=== PATIENT | female | born 1965 | race Two or more races ===

== ENCOUNTER 2020-09-12 09:22 | Outpatient (REF) | payer MEDICARE, MEDICAID, SELFPAY ==
--- NOTE | 2020-09-12 09:28 | US_ITS ---
EXAMINATION: US ABDOMEN COMPLETE CLINICAL INFORMATION: Upper abdominal pain, unspecified. COMPARISON: None TECHNIQUE: Real-time imaging of the abdominal viscera. FINDINGS: PANCREAS: Normal. ABDOMINAL AORTA: The proximal, mid, and distal segments are normal in caliber. INFERIOR VENA CAVA: Visualized portions are normal. LIVER: Normal. The liver is normal in size. The liver contour is normal. Parenchymal echogenicity is normal. No focal hepatic lesion. There is no intrahepatic biliary duct dilatation seen. GALLBLADDER: Surgically absent. COMMON BILE DUCT: Normal in caliber measuring 0.6 cm in diameter. RIGHT KIDNEY: Normal. No hydronephrosis. No renal calculi or focal parenchymal lesions. The kidney measures 10.4 cm in maximum dimension. LEFT KIDNEY: Normal. No hydronephrosis. No renal calculi or focal parenchymal lesions. The kidney measures 9.9 cm in maximum dimension. SPLEEN: Normal. The spleen measures 8.2 cm in maximum dimension. FREE FLUID: None. US/US abdomen complete IMPRESSION: Unremarkable complete abdomen ultrasound.
== END 2020-09-12 09:23 | disposition home or self-care (01) ==
LOC: HO.US 09:22
PROVIDERS: Visit Provider Internal Medicine
DX: R10.10 Upper abdominal pain, unspecified (principal)
CPT/HCPCS: 76700

== ENCOUNTER 2021-05-21 11:34 | Outpatient (REF) | payer MEDICARE, MEDICAID, SELFPAY ==
--- NOTE | ~2021-05-21 | XR_ITS ---
EXAMINATION: XR SHOULDER, LEFT CLINICAL INFORMATION: Pain upper arm. COMPARISON: None TECHNIQUE: Left shoulder is imaged in 4 views. FINDINGS: There is no fracture, dislocation, or destructive process. The glenohumeral joint appears normal. The acromioclavicular alignment is normal. The axial view shows punctate mineralization or ossification adjacent to the anterior aspect tuberosity, possibly calcific tendinosis distal subscapularis. Otherwise, no visible rotator cuff calcifications. XR/XR shoulder LT min 2V IMPRESSION: 1. No bony abnormality. No joint narrowing or erosive change. 2. Question calcification in region of distal subscapularis. No other visible rotator cuff calcifications.
== END 2021-05-21 11:35 | disposition home or self-care (01) ==
LOC: HO.HMGCX 11:34
PROVIDERS: PCP Internal Medicine; Visit Provider Internal Medicine
DX: Z13.89 Encounter for screening for other disorder (principal)
CPT/HCPCS: 73030

== ENCOUNTER 2023-08-18 15:31 | Outpatient (AMB) | payer MEDICARE, MEDICAID, SELFPAY ==
[2023-08-18 15:45] VITALS: BP 124/74; PULSE 62; RESP 17; O2SAT 97; BMI 23.2
--- NOTE | 2023-08-18 15:45 | A.OFFPC_ITS ---
Vital Signs 08/18/23 15:45 Height 5 ft 3 in Weight 131 lb 4 oz BMI 23.2 BP 124/74 Blood Pressure Location Lt brachial Position Sitting Respiration 17 Pulse 62 Pulse Source Pulse Oximeter Pulse Oximetry (%) 97 Oxygen Delivery Method Room Air Intake Visit Reasons: Rapid weight loss Intake Note: Transfer care from [place]. Pt is here for rapid weight loss. [employer] Instructor Required: No Accompanied by: Self / Same As Patient Allergies codeine Allergy (Unknown, Verified 08/18/23 16:02) palpitation Penicillins Allergy (Unknown, Verified 08/18/23 16:02) Rash Medication List - Last Reconciled 08/18/23 by Brady Bonilla PA-C acetaminophen 1,000 mg PO Q8H aspirin 325 mg PO DAILY cyclobenzaprine 10 mg PO TID PRN duloxetine 30 mg PO DAILY loratadine 10 mg PO DAILY lorazepam 0.5 mg PO BEDTIME PRN meclizine 12.5 mg PO .QD PRN meloxicam 15 mg PO DAILY 30 days Tobacco use date assessed: 11/16/22 Dental Screening Dental Screen Date: 08/18/23 Did you have a dental visit in the last 12 months?: Yes Did you have a dental problem in the last 6 months where you did not have access to dental care?: No Was dental information given to patient?: Patient has dentist HPI Rapid weight loss HPI Details Patient is a 57-year-old female here today for transfer of care visit. This is the 1st time meeting this 57-year-old female with a past medical history significant for generalized anxiety disorder, vertigo, chronic arthritic pains. She is mostly concerned today of some weight loss. She reports she gained about 15 lb before her last office visit though has lost another 15 lb over the last 6 weeks. According to our records she has only 4 lb since October of 2022. She reports her previous PCP many years ago did note she had a pulmonary nodule and wonders if she has a thyroid issue causing her weight fluctuations. Anxiety: She continues to suffer with anxiety worse as of lately. She did use lorazepam on a very limited p.r.n. basis for panic attacks to which she is asking for refill on. [facility] Medical History (Updated 08/18/23 @ 16:21 by Brady Bonilla PA-C) Vertigo Costochondritis Generalized anxiety disorder History of COVID-19 Seasonal allergies Chronic heartburn Rotator cuff tear Degenerative disc disease, cervical Anxiety disorder Cholecystitis Upper abdominal pain Surgical History History of rotator cuff surgery Hx of cholecystectomy Family History Father HTN (hypertension) Diabetes mellitus Mother HTN (hypertension) Son Crohn disease Daughter No problems noted. Social History Household Members: Spouse Housing: House Alcohol intake: current Alcohol intake frequency: holidays/special occasions only Alcohol type: wine Patient Tobacco Use Status: Never used Tobacco e-Cigarette/Vaping Use: Never Used service: No Current occupational status: unemployed and retired Cognitive needs: No Hearing needs: No Vision needs: No Questionnaire Thrive Questionnaire Date Thrive assessed: 11/16/22 YASHIRA-7 AMB Questionnaire YASHIRA-7 Date YASHIRA - 7 assessed: 11/16/22 Source: Developed by Drs. Kaushik Hammond, Kari Saldivar, Costa James and colleagues, with an educational antonio from [employer]. Review of Systems Const Denies headache(s) Eyes Denies loss of vision ENT Reports vertigo, Reports dizziness, Denies headache(s) and Denies sore throat Card Denies chest pain, Denies leg edema and Denies lightheadedness Resp Denies cough, Denies hemoptysis and Denies wheezing GI Denies abdominal pain, Denies melena, Denies constipation, Denies diarrhea and Denies vomiting Denies urinary frequency, Denies dysuria and Denies urinary urgency Musc Denies atrophy, Denies arthralgias, Denies joint swelling, Denies numbness and Denies tingling Neuro Denies Abnormal speech present, Denies behavioral changes, Reports vertigo, Reports dizziness, Denies headache(s), Denies loss of vision, Denies memory loss, Denies numbness and Denies tingling Psych Reports anxiety, Denies behavioral changes, Denies depression, Denies memory loss and Reports panic attacks Martin/Lymph Denies easy bleeding and Denies easy bruising Aller/Immun Denies wheezing Physical exam (Primary Care) Vital Signs: Last Vital Signs Pulse 62 08/18/23 15:45 Resp 17 12/20/23 15:45 BP 124/74 08/18/23 15:45 Pulse Ox 97 08/18/23 15:45 Oxygen Delivery Method Room Air 08/18/23 15:45 BMI result Body Mass Index 23.2 Tobacco/Smoking Status: Tobacco use Status Tobacco use date assessed 11/16/22 08/18/23 15:47 Patient Tobacco Use Status Never used Tobacco 08/18/23 15:47 e-Cigarette/Vaping Use Never Used 08/18/23 15:47 Thrive Assessment: Date of Thrive Assessment Date Thrive assessed 11/16/22 08/18/23 15:47 Const General: healthy appearing, no acute distress, alert and awake Nutritional Appearance: well nourished Orientation/consciousness: oriented to person, oriented to place and oriented to time HENMT Ears: TM's normal bilaterally General nose exam: Normal nasal mucous membranes and turbinates present Eyes Conjunctivae: conjunctivae normal Sclerae: sclerae normal Pupils: Equal, round and reactive pupils present Neck Neck: Yes no lymphadenopathy and Yes no JVD Thyroid: Thyroid normal Carotids: no bruits Resp Effort & Inspection: normal respiratory effort and not tachypneic Auscultation: no crackles, no rales, no rhonchi and no wheezes Cardio Rate: regular rate Rhythm: regular rhythm Heart sounds: no murmurs and normal S1 and S2 GI Palpation (GI): Soft to palpation, nontender, no hepatomegaly and no splenomegaly Auscultation: normal bowel sounds Skin General skin exam: no rashes or lesions noted and dry skin Neuro General: oriented to person, oriented to place and oriented to time Cranial nerves: Yes Equal, round and reactive pupils present Speech: No Abnormal speech present Gait exam (Neuro): Normal gait present Motor exam (neuro): no tremor noted Extrem Right upper extremity: full ROM Left upper extremity: full ROM Right lower extremity: full ROM; no edema Left lower extremity: full ROM; no edema Psych Mental Status: mental status grossly normal Speech and movement: Normal speech and movement present Affect: normal affect Attitude: cooperative Thought process: Normal thought process present Assessment and Plan Assessment & Plan (1) Fatigue: Code(s): R53.83 - Other fatigue Qualifiers: Fatigue type: chronic, unspecified Qualified Code(s): R53.82 - Chronic fatigue, unspecified Plan: Reports being more fatigued as of late. Will like to check her thyroid. (2) Weight loss: Code(s): R63.4 - Abnormal weight loss Plan: Does report weight loss over the last 6 weeks. Again will like to check her thyroid (3) Thyroid nodule: Code(s): E04.1 - Nontoxic single thyroid nodule Plan: Has a history of a thyroid nodule per patient. Had never followed up for surveillance imaging.. Will send for ultrasound of thyroid to evaluate thyroid nodule (4) Screening for diabetes mellitus (DM): Code(s): Z13.1 - Encounter for screening for diabetes mellitus (5) Generalized anxiety disorder: Code(s): F41.1 - Generalized anxiety disorder Plan: Patient does report suffering with more anxiety as of lately and does not completely understand why. 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 She would like a few tablets of lorazepam to use on a p.r.n. basis for panic. Not interested in speaking with a mental health therapist at this time. Orders: Orders US thyroid 08/18/23 E04.1 - Nontoxic single thyroid nodule TSH reflex Free T4 08/18/23 E04.1 - Nontoxic single thyroid nodule Comprehensive [place]. Panel Fast 08/18/23 Z13.1 - Encounter for screening for diabetes mellitus Medications: Changed From loratadine 10 mg PO DAILY 30 tabs 2RF J30.2 - Other seasonal allergic rhinitis To loratadine 10 mg PO DAILY 90 days 90 tabs 1RF J30.2 - Other seasonal usha rgic rhinitis Refilled meclizine 12.5 mg PO .QD PRN 20 tabs 0RF dizziness E04.1 - Nontoxic single thyroid nodule lorazepam 0.5 mg PO BEDTIME PRN 5 tabs 0RF anxiety Z76.0 - Encounter for issue of repeat prescription Discontinued cyclobenzaprine Discontinued Reason: Doctor's Order 10 mg PO TID PRN 20 tabs 0RF muscle spasm duloxetine Discontinued Reason: Doctor's Order 30 mg PO DAILY 90 caps 1RF F41.1 - Generalized anxiety disorder Coding Level of Care Code Est Pt Level 4 (95768) Diagnoses Chronic fatigue R53.82 Fatigue type: chronic, unspecified Weight loss R63.4 Thyroid nodule E04.1 Screening for diabetes mellitus (DM) Z13.1 Generalized anxiety disorder F41.1
== END 2023-08-18 16:34 | disposition home or self-care (01) ==
PROVIDERS: PCP Physician Assistant; Visit Provider Physician Assistant
DX: R53.82 Chronic fatigue, unspecified (principal); R63.4 Abnormal weight loss; E04.1 Nontoxic single thyroid nodule; Z13.1 Encounter for screening for diabetes mellitus; F41.1 Generalized anxiety disorder
CPT/HCPCS: 99214

== ENCOUNTER 2023-08-18 16:40 | Outpatient (REF) | payer MEDICARE, MEDICAID, SELFPAY ==
[2023-08-18 18:12] LABS: Alanine Aminotransferase 20 U/L (0-31); Albumin Level 4.7 g/dL (3.5-5.0); Alkaline Phosphatase 97 U/L (39-117); Anion Gap 13 (12-20); Aspartate Amino Transferase 18 U/L (5-31); Bilirubin Total 0.6 mg/dL (0.0-1.0); Blood Urea Nitrogen 15 mg/dL (9-16); Calcium 9.8 mg/dL (8.4-10.2); Carbon Dioxide 27 mmol/L (22-29); Chloride 107 mmol/L (96-108); Estimated Glomerular Filt Rate > 60; Glucose Fasting 91 mg/dL (60-99); Potassium 3.7 mmol/L (3.3-5.1); Sodium 143 mmol/L (135-145); Total Protein 8.2 g/dL (6.5-8.0)
[2023-08-18 18:27] LABS: TSH reflex Free T4 1.95 uIU/mL (0.32-4.0)
== END 2023-08-18 16:41 | disposition home or self-care (01) ==
LOC: HO.LAB 16:40
PROVIDERS: PCP Physician Assistant; Visit Provider Physician Assistant
DX: E04.1 Nontoxic single thyroid nodule (principal); Z13.1 Encounter for screening for diabetes mellitus
CPT/HCPCS: 36415; 80053; 84443

== ENCOUNTER 2024-02-01 10:20 | Outpatient (AMB) | payer OTHER, SELFPAY ==
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
[2024-02-01 10:33] VITALS: BP 146/80; PULSE 60; O2SAT 98; BMI 24.1
== END 2024-02-01 11:50 | disposition home or self-care (01) ==
PROVIDERS: PCP Physician Assistant; Visit Provider Physician Assistant
DX: M25.561 Pain in right knee (principal); M25.562 Pain in left knee; V89.2XXS Person injured in unspecified motor-vehicle accident, traffic, sequela; R63.4 Abnormal weight loss; F41.1 Generalized anxiety disorder; N63.31 Unspecified lump in axillary tail of the right breast; N63.32 Unspecified lump in axillary tail of the left breast
CPT/HCPCS: 96127; 99214

== ENCOUNTER 2024-02-03 09:21 | Outpatient (REF) | payer MEDICARE, MEDICAID, SELFPAY ==
[2024-02-03 10:18] LABS: Hematocrit 37.4 % (37.0-47.0); Hemoglobin 12.7 g/dl (12.0-16.0); Mean Corpuscular Hemoglobin 31.1 pg (27.0-33.0); Mean Corpuscular Volume 91.4 fL (80.0-98.0); Mean Platelet Volume 10.2 fL (9.4-12.3); Platelet Count 199 X10*3/uL (160-400); Red Blood Count 4.09 X10*6/uL (4.20-5.50); Red Cell Distribution Width 12.2 % (11.0-16.0); White Blood Count 4.5 X10*3/uL (4.8-10.8)
[2024-02-03 10:54] LABS: Alanine Aminotransferase 18 U/L (0-31); Albumin Level 4.2 g/dL (3.5-5.0); Alkaline Phosphatase 77 U/L (39-117); Anion Gap 9 (12-20); Aspartate Amino Transferase 16 U/L (5-31); Bilirubin Total 0.8 mg/dL (0.0-1.0); Blood Urea Nitrogen 27 mg/dL (9-16); Calcium 9.8 mg/dL (8.4-10.2); Carbon Dioxide 28 mmol/L (22-29); Chloride 110 mmol/L (96-108); Estimated Glomerular Filt Rate > 60; Glucose Fasting 91 mg/dL (60-99); Potassium 4.4 mmol/L (3.3-5.1); Sodium 143 mmol/L (135-145)
[2024-02-03 11:03] LABS: HIV AB/AG Nonreactive (Nonreactive); HIV Num 1 0.06 S/CO (0.00-0.99)
[2024-02-03 11:19] LABS: TSH reflex Free T4 1.63 uIU/mL (0.32-4.0)
== END 2024-02-03 09:22 | disposition home or self-care (01) ==
LOC: HO.LAB 09:21
PROVIDERS: PCP Physician Assistant; Visit Provider Physician Assistant
DX: E04.1 Nontoxic single thyroid nodule (principal); Z13.1 Encounter for screening for diabetes mellitus; Z11.3 Encounter for screening for infections with a predominantly sexual mode of transmission; R63.4 Abnormal weight loss
CPT/HCPCS: 36415; 80053; 84443; 85027; 87389

== ENCOUNTER 2024-02-16 13:37 | Outpatient (REF) | payer MEDICARE, MEDICAID, SELFPAY ==
--- NOTE | ~2024-02-16 | US_ITS ---
EXAMINATION: ULTRASOUND BILATERAL AXILLA SOFT TISSUES CLINICAL INFORMATION: Bilateral axillary pain, no palpable lump. Per patient the pain has been going for a while. No known history of trauma to the axilla. COMPARISON: None available. TECHNIQUE: Targeted ultrasound images were obtained by the block greaser of the area of concern as indicated by the patient in the bilateral axilla. Radiologist was not in attendance. Images were later provided for interpretation. FINDINGS: No discrete adenopathy or fluid collection identified in the areas of concern as indicated by the patient in the bilateral axillae. US/US extremity nonvascular jose IMPRESSION: 1. No discrete adenopathy or fluid collection identified in the areas of concern as indicated by the patient in the bilateral axillae. 2. Decisions regarding further imaging, treatment or biopsy should be based on the clinical exam, as not all abnormalities are detectable on ultrasound studies.
== END 2024-02-16 13:38 | disposition home or self-care (01) ==
LOC: HO.HMGCX 13:37
PROVIDERS: PCP Physician Assistant; Visit Provider Physician Assistant
DX: N63.32 Unspecified lump in axillary tail of the left breast (principal); M79.621 Pain in right upper arm; M79.622 Pain in left upper arm
CPT/HCPCS: 76882

== ENCOUNTER 2024-08-28 10:03 | Outpatient (AMB) | payer MEDICARE, MEDICAID, SELFPAY ==
--- NOTE | 2024-08-28 10:36 | A.OFFPC_ITS ---
Vital Signs 08/28/24 10:45 Height 5 ft 1.02 in Weight 129 lb 4 oz BMI 24.4 BP 128/72 Blood Pressure Location Lt brachial Position Sitting Pulse 61 Pulse Source Pulse Oximeter Pulse Oximetry (%) 100 Oxygen Delivery Method Room Air Intake Visit Reasons: Abdominal pain/GI referral Contact Center Specialist Required: No Accompanied by: Self / Same As Patient Allergies codeine Allergy (Unknown, Verified 08/28/24 10:49) palpitation Penicillins Allergy (Unknown, Verified 08/28/24 10:49) Rash Medication List - Last Reconciled 08/28/24 by Brady Bonilla PA-C acetaminophen 1,000 mg PO Q8H loratadine 10 mg PO DAILY 90 days lorazepam 0.5 mg PO BEDTIME PRN meclizine 12.5 mg PO .QD PRN meloxicam 15 mg PO DAILY 30 days Tobacco use date assessed: 02/01/24 Dental Screening Dental Screen Date: 02/01/24 HPI Abdominal pain/GI referral HPI Details The patient is a 58-year-old female presenting with abdominal pain and constipation. The abdominal pain has been ongoing for some time and was severe enough to prompt an emergency room visit. Initial suspicion included appendiceal involvement due to the pain's location, but subsequent evaluations, including blood work and ultrasound, did not confirm this. The pain persists in the area believed to be around the colon, with the patient describing it as a sharp, pinching sensation. Approximately 10 years ago, the patient underwent a colonoscopy during which polyps were removed. Recent interventions include increased water intake and use of various stool softeners and laxatives, such as MiraLAX, Co-Lax, and fiber supplements, without significant relief. She does not describe frequent or unusual bowel movements but reports a feeling of not going often enough and notes that the pain is localized to the right side. The patient denies any accompanying nausea, diarrhea, or rectal bleeding, and reports normal stool color. She previously experienced noticeable weight loss, decreasing from 140 to 127 pounds, although her weight has since stabilized. Reports she has been dealing lot of depression lately evidenced feeling fatigued, already sleeping and often crying. She is willing to try an SSRI to help her with depression. She does use lorazepam on a very limited basis for her mental health as well. She was seeing a mental health therapist quite awhile ago though has stopped getting services as they were not helpful. [facility] Medical History Vertigo Costochondritis Generalized anxiety disorder History of COVID-19 Seasonal allergies Chronic heartburn Rotator cuff tear Degenerative disc disease, cervical Anxiety disorder Cholecystitis Upper abdominal pain Surgical History History of rotator cuff surgery Hx of cholecystectomy Family History Father HTN (hypertension) Diabetes mellitus Mother HTN (hypertension) Son Crohn disease Daughter No problems noted. Social History Household Members: Spouse Housing: House Alcohol intake: current Alcohol intake frequency: holidays/special occasions only Alcohol type: wine Patient Tobacco Use Status: Never used Tobacco e-Cigarette/Vaping Use: Never Used service: No Current occupational status: unemployed and retired Cognitive needs: No Hearing needs: No Vision needs: No Questionnaire PHQ-9 Over the last 2 weeks, how often have you been bothered by any of the following problems? 1. Little interest or pleasure in doing things: several days 2. Feeling down, depressed, or hopeless: more than half the days 3. Trouble falling or staying asleep, or sleeping too much: several days 4. Feeling tired or having little energy: more than half the days 5. Poor appetite or overeating: not at all 6. Feeling bad about yourself - or that you are a failure or have let yourself or your family down: several days 7. Trouble concentrating on things, such as reading the newspaper or watching television: several days 8. Moving or speaking so slowly that other people could have noticed. Or the opposite - being so fidgety or restless that you have been moving around a lot more than usual: not at all 9. Thoughts that you would be better off or of hurting yourself in some way: not at all Total score: 8 Depression Screening Interpretation: Positive Depression Screening Follow-up: Existing condition and New Medication prescribed Depression Screening Done: Yes 20854 - PHQ-9 Billing: Yes Source: Developed by Drs. Kaushik Hammond, Kari Costa Paul and colleagues, with an educational antonio from [employer]. Thrive Questionnaire Date Thrive assessed: 02/01/24 YASHIRA-7 AMB Questionnaire YASHIRA-7 Date YASHIRA - 7 assessed: 02/01/24 Source: Developed by Drs. Kaushik Hammond, Costa Williamson and colleagues, with an educational antonio from [employer]. Review of Systems Const Denies headache(s) Eyes Denies loss of vision ENT Denies vertigo, Denies dizziness, Denies headache(s) and Denies sore throat Card Denies chest pain, Denies leg edema and Denies lightheadedness Resp Denies cough, Denies hemoptysis and Denies wheezing GI Details: + right lower quadrant abdominal pain Reports abdominal pain, Denies melena, Reports constipation, Denies diarrhea and Denies vomiting Denies urinary frequency, Denies dysuria and Denies urinary urgency Musc Denies arthralgias, Denies joint swelling, Denies numbness and Denies tingling Neuro Denies Abnormal speech present, Denies behavioral changes, Denies vertigo, Denies dizziness, Denies headache(s), Denies loss of vision, Denies memory loss, Denies numbness and Denies tingling Psych Reports anxiety, Denies behavioral changes, Reports depression, Denies memory loss and Denies panic attacks Martin/Lymph Denies easy bleeding and Denies easy bruising Aller/Immun Denies wheezing Physical exam (Primary Care) Vital Signs: Last Vital Signs Pulse 61 08/28/24 10:45 BP 128/72 08/28/24 10:45 Pulse Ox 100 08/28/24 10:45 Oxygen Delivery Method Room Air 08/28/24 10:45 BMI result Body Mass Index 24.4 Tobacco/Smoking Status: Tobacco use Status Tobacco use date assessed 02/01/24 08/28/24 10:36 Patient Tobacco Use Status Never used Tobacco 08/28/24 10:36 e-Cigarette/Vaping Use Never Used 08/28/24 10:36 PHQ-9: PHQ-9 Score PHQ-9: Total score 8 08/28/24 11:18 Depression Screening Interpretation: Positive Depression Screening Follow-up: Existing condition and New Medication prescribed Thrive Assessment: Date of Thrive Assessment Date Thrive assessed 02/01/24 08/28/24 10:36 Const General: healthy appearing, no acute distress, alert and awake Nutritional Appearance: well nourished Orientation/consciousness: oriented to person, oriented to place and oriented to time HENMT Ears: TM's normal bilaterally General nose exam: Normal nasal mucous membranes and turbinates present Eyes Conjunctivae: conjunctivae normal Sclerae: sclerae normal Pupils: Equal, round and reactive pupils present Neck Neck: Yes no lymphadenopathy and Yes no JVD Thyroid: Thyroid normal Carotids: no bruits Resp Effort & Inspection: normal respiratory effort and not tachypneic Auscultation: no crackles, no rales, no rhonchi and no wheezes Cardio Rate: regular rate Rhythm: regular rhythm Heart sounds: no murmurs and normal S1 and S2 GI Palpation (GI): Soft to palpation, nontender, no hepatomegaly and no splenomegaly Auscultation: normal bowel sounds Skin General skin exam: no rashes or lesions noted and dry skin Neuro General: oriented to person, oriented to place and oriented to time Cranial nerves: Yes Equal, round and reactive pupils present Speech: No Abnormal speech present Gait exam (Neuro): Normal gait present Motor exam (neuro): no tremor noted Extrem Right upper extremity: full ROM Left upper extremity: full ROM Right lower extremity: full ROM; no edema Left lower extremity: full ROM; no edema Psych Mental Status: mental status grossly normal Speech and movement: Normal speech and movement present Affect: normal affect Attitude: cooperative Thought process: Normal thought process present Coding Level of Care Code Est Pt Level 4 (62243) Diagnoses Slow transit constipation K59.01 Constipation type: slow transit constipation MDD (major depressive disorder), recurrent episode, moderate F33.1 Additional Codes PHQ-9 - 57923 - PHQ-9 Billing: Yes ([id number]) Assessment & Plan Assessment & Plan (1) Constipation: Code(s): K59.00 - Constipation, unspecified Category: Medical Qualifiers: Constipation type: slow transit constipation Qualified Code(s): K59.01 - Slow transit constipation Plan: Patient seems to be suffering with constipation. CT of abdomen did show a lot of stool blurred though senior financial reporting accountant evidence of appendicitis. She continues to have right lower quadrant abdominal pain Will supply patient with lactulose to use for it is a laxative effect. Will refer to GI for evaluation (2) MDD (major depressive disorder), recurrent episode, moderate: Code(s): F33.1 - Major depressive disorder, recurrent, moderate Category: Medical Plan: As per HPI patient does seem to be suffering with major depressive disorder. Again was seen by mental health therapist in the past though was not effective for her. She is willing to try SSRI therapy to help her with the depressed mood. Follow up with patient in 6 weeks to evaluate the effectiveness of SSRI therapy. Will consider Psychiatry re-evaluation and treatment Orders: Orders Basic Metabolic Panel Today K59.01 - Slow transit constipation Complete Blood Count no Diff Today F33.1 - Major depressive disorder, recurrent, moderate Vitamin D 25-OH Total Today F33.1 - Major depressive disorder, recurrent, moderate Referrals Gastroenterology Referral K59.01 - Slow transit constipation Medications: New lactulose 30 grams (45 mL) PO BID PRN 600 mL 0RF constipation 15 days K59.01 - Slow transit constipation sertraline 50 mg PO DAILY 30 tabs 1RF 30 days F33.1 - Major depressive disorder, recurrent, moderate Refilled lorazepam 0.5 mg PO BEDTIME PRN 5 tabs 0RF anxiety Z76.0 - Encounter for issue of repeat prescription
[2024-08-28 10:45] VITALS: BP 128/72; PULSE 61; O2SAT 100; BMI 24.4
== END 2024-08-28 11:18 | disposition home or self-care (01) ==
PROVIDERS: PCP Physician Assistant; Visit Provider Physician Assistant
DX: K59.01 Slow transit constipation (principal); F33.1 Major depressive disorder, recurrent, moderate

== ENCOUNTER 2024-09-12 09:16 | Outpatient (REF) | payer MEDICARE, MEDICAID, SELFPAY ==
[2024-09-12 09:52] LABS: Hematocrit 39.5 % (37.0-47.0); Hemoglobin 13.2 g/dl (12.0-16.0); Mean Corpuscular HGB Conc 33.4 g/dl (31.0-35.0); Mean Corpuscular Hemoglobin 30.5 pg (27.0-33.0); Mean Corpuscular Volume 91.2 fL (80.0-98.0); Mean Platelet Volume 10.4 fL (9.4-12.3); Platelet Count 179 X10*3/uL (160-400); Red Blood Count 4.33 X10*6/uL (4.20-5.50); Red Cell Distribution Width 12.1 % (11.0-16.0); White Blood Count 4.1 X10*3/uL (4.8-10.8)
[2024-09-12 10:44] LABS: Anion Gap 8 (12-20); Blood Urea Nitrogen 14 mg/dL (9-16); Calcium 9.5 mg/dL (8.4-10.2); Carbon Dioxide 28 mmol/L (22-29); Chloride 109 mmol/L (96-108); Estimated Glomerular Filt Rate > 60; Glucose Random 87 mg/dL (60-115); Potassium 4.2 mmol/L (3.3-5.1); Sodium 141 mmol/L (135-145); Vitamin D 25-OH Total 30.4 ng/mL (>30)
== END 2024-09-12 09:17 | disposition home or self-care (01) ==
LOC: HO.LAB 09:16
PROVIDERS: PCP Physician Assistant; Visit Provider Physician Assistant
DX: K59.01 Slow transit constipation (principal); F33.1 Major depressive disorder, recurrent, moderate
CPT/HCPCS: 36415; 80048; 82306; 85027

== ENCOUNTER 2024-10-10 09:30 | Outpatient (AMB) | payer MEDICARE, MEDICAID, SELFPAY ==
--- NOTE | 2024-10-10 09:35 | MHC.OFFVIS ---
Vital Signs 10/10/24 09:37 Height 5 ft 1 in Weight 133 lb 2.547 oz BMI 25.2 BP 136/66 Blood Pressure Location Rt brachial Position Sitting Pulse 64 Pulse Source Pulse Oximeter Pulse Oximetry (%) 97 Oxygen Delivery Method Room Air Intake Visit Reasons: abdominal pain Intake Note: NEW PATIENT for abd pain mgmt. Initial consult. Prior hx of colo/egd? > 10 Years ago per PCP note. Chief Complaint; Pt reported abn weight loss over the last year. Hx of IBS-C, denies diarrhea, abd pain B/L UQ primarily, reports occasional RLQ pain but not as frequently. Reflux is occasional but tends to be well managed with diet. Decontamination Worker Required: No Accompanied by: Self / Same As Patient Allergies codeine Allergy (Unknown, Verified 08/28/24 10:49) palpitation Penicillins Allergy (Unknown, Verified 08/28/24 10:49) Rash HPI HPI abdominal pain: Details: 58-year-old female with past medical history of MDD, constipation, thyroid nodule, costochondritis, generalized anxiety disorder, seasonal allergies is here today for initial consultation. Patient was sent to us by her PCP. Patient reports that she has been having abdominal bloating and epigastric pain. Patient also suffers from constipation. Even when she has a bowel movement she does not feel like she empties completely. Patient reports left lower quadrant pain. Denies increase in pain when pressing. Denies any nausea or vomiting. Denies any melena, hematochezia, unintentional weight loss or ribbon like stools. Patient does report that she lost weight in the last year so, however when we are checking her history she has been the same wait for about almost 2 years. Patient was seen at [facility] in [place] in the ED for abdominal pain. Patient thought that she had diverticulitis, however patient had normal CT scan and no leukocytosis. [facility] Medical History (Updated 10/10/24 @ 10:12 by RUDY Callaway-ERAN) Abdominal pain Vertigo Costochondritis Generalized anxiety disorder History of COVID-19 Seasonal allergies Chronic heartburn Rotator cuff tear Degenerative disc disease, cervical Anxiety disorder Cholecystitis Upper abdominal pain Surgical History History of rotator cuff surgery Hx of cholecystectomy Family History Father HTN (hypertension) Diabetes mellitus Mother HTN (hypertension) Son Crohn disease Daughter No problems noted. Social History Household Members: Spouse Housing: House Alcohol intake: current Alcohol intake frequency: holidays/special occasions only Alcohol type: wine Patient Tobacco Use Status: Never used Tobacco e-Cigarette/Vaping Use: Never Used service: No Current occupational status: unemployed and retired Cognitive needs: No Hearing needs: No Vision needs: No Review of Systems Const Denies weight gain and Denies weight loss ENT Reports no additional complaints, Denies dysphagia and Denies odynophagia Card Reports no additional complaints Resp Reports no additional complaints GI Reports abdominal pain (LUQ, occ RLQ), Denies belching, Denies melena, Reports bloating, Denies change in bowel habits, Reports constipation, Denies dysphagia, Denies excessive flatus, Denies dyspepsia, Denies heartburn, Denies diarrhea, Denies loose stools, Denies nausea, Denies odynophagia and Denies vomiting Reports no additional complaints Musc Reports no additional complaints Neuro Reports no additional complaints Psych Reports no additional complaints Endo Reports no additional complaints Physical Exam Vital Signs: Last Vital Signs Pulse 64 10/10/24 09:37 BP 136/66 10/10/24 09:37 Pulse Ox 97 10/10/24 09:37 Oxygen Delivery Method Room Air 10/10/24 09:37 BMI result Body Mass Index 25.2 Const General: healthy appearing, no acute distress and well developed Nutritional Appearance: well nourished Orientation/consciousness: patient oriented x3 Resp Effort & Inspection: normal respiratory effort, able to speak in complete sentences, no tracheal deviation and symmetric chest movement Auscultation: clear to auscultation bilaterally Cardio Rate: regular rate GI Inspection: Yes normal to inspection and No distended Palpation (GI): Soft to palpation, not firm, nontender and No hepatosplenomegaly present Auscultation: normal bowel sounds General: Yes no CVA tenderness Back/Spine/Pelvis Back: no CVA tenderness Skin General skin exam: elasticity normal, turgor normal and dry skin Neuro General: patient oriented x3 Psych Appearance: grossly normal Mental Status: mental status grossly normal Assessment & Plan Assessment & Plan (1) Constipation: Code(s): K59.00 - Constipation, unspecified Category: Medical Qualifiers: Constipation type: slow transit constipation Qualified Code(s): K59.01 - Slow transit constipation (2) Abdominal bloating: Code(s): R14.0 - Abdominal distension (gaseous) (3) LLQ abdominal pain: Code(s): R10.32 - Left lower quadrant pain (4) RLQ abdominal pain: Code(s): R10.31 - Right lower quadrant pain (5) GERD (gastroesophageal reflux disease): Code(s): K21.9 - Gastro-esophageal reflux disease without esophagitis Qualifiers: Esophagitis presence: esophagitis presence not specified Qualified Code(s): K21.9 - Gastro-esophageal reflux disease without esophagitis Plan Occasional reflux, however patient reports that she is trying to change her diet and avoiding dietary triggers. Patient reports severe constipation. Patient will increase fluid intake. States that she does not drink water. Increase activity to promote better bowel motility. Patient will start taking senna daily. Occasional out upper quadrant pain and left upper quadrant pain, however mostly experiencing pain in the left lower and right lower quadrant. Will check liver panel, lipase. Rule out celiac, check thyroid study. Message sent to surgical schedulers to book colonoscopy for patient. I will see her in 2 months. Patient will call our office if she will have worsening symptoms. Patient is agreeable to this plan and verbalizes understanding of instructions. She was given the opportunity to ask questions and all questions answered. Thank you for allowing me to participate in her care Report from ED visit at [facility] as well as labs and CT scans reviewed Orders: Orders Liver Panel Today R74.01 - Elevation of levels of liver transaminase levels Lipase Today R10.9 - Unspecified abdominal pain Transglutaminase IgA Today R10.9 - Unspecified abdominal pain TSH reflex Free T4 Today K59.00 - Constipation, unspecified Vitamin B12 and Folate Today R19.7 - Diarrhea, unspecified Lipid Panel Today R10.9 - Unspecified abdominal pain Medications: New sennosides (Natural Senna Laxative) 17.2 mg (2 x 8.6 mg) PO BEDTIME 60 tabs 3RF constipation K59.00 - Constipation, unspecified Discontinued lactulose Discontinued Reason: Doctor's Order 30 grams (45 mL) PO BID 15 days PRN 600 mL 0RF constipation K59.01 - Slow transit constipation Coding Level of Care Code New Pt Level 4 (58591) Diagnoses Slow transit constipation K59.01 Constipation type: slow transit constipation Abdominal bloating R14.0 LLQ abdominal pain R10.32 RLQ abdominal pain R10.31 Gastroesophageal reflux disease, unspecified whether esophagitis present K21.9 Esophagitis presence: esophagitis presence not specified Time Spent (min) 50 Comment 30 minutes spent with patient and additional 20 minutes spent reviewing her records
[2024-10-10 09:37] VITALS: BP 136/66; PULSE 64; O2SAT 97; BMI 25.2
== END 2024-10-10 10:20 | disposition home or self-care (01) ==
PROVIDERS: PCP Physician Assistant; Visit Provider Nurse Practitioner Family
DX: K59.01 Slow transit constipation (principal); R14.0 Abdominal distension (gaseous); R10.32 Left lower quadrant pain; R10.31 Right lower quadrant pain; K21.9 Gastro-esophageal reflux disease without esophagitis
CPT/HCPCS: 99204

== ENCOUNTER → 2024-10-10 09:30 | Outpatient (BNVA) | payer MEDICARE, MEDICAID, SELFPAY | PROVIDERS: PCP Physician Assistant; Visit Provider Nurse Practitioner Family | DX: K59.01 Slow transit constipation (principal); K21.9 Gastro-esophageal reflux disease without esophagitis; R14.0 Abdominal distension (gaseous); R10.32 Left lower quadrant pain; R10.31 Right lower quadrant pain | CPT/HCPCS: 99202 ==

== ENCOUNTER 2024-10-16 08:57 | Outpatient (REF) | payer MEDICARE, MEDICAID, SELFPAY ==
--- OUTSIDE RECORDS SUMMARY | 2024-10-16 09:00 | XMS_ITS | Patient Health Record ---
Author Organization [facility] Address [address] [place] [address] Care Team Providers Care Skid Wrapper Name Role Phone Raymundo Fernando Primary Care Provider REASON FOR REFERRAL No Information PLAN OF TREATMENT No Information Insurance Providers Payer Name Payer Address Payer Phone Subscriber Number Group Number Insured Name Patient Relationship to Insured Coverage Start Date Coverage End Date MEDICARE [employer] [address] [place] [address] [id number] Charis Torres Self - patient is the insured [facility] [address] [place] [address] [id number] Charis Torres Self - patient is the insured
--- OUTSIDE RECORDS SUMMARY | 2024-10-16 09:00 | XMS_ITS | Clinical Summary ---
Author Organization [facility] Address [address] [place] [address] Care Team Providers Care Pre K Teacher Name Role Phone BeckGinnaEleni Plaza NP Primary Care Provi zelda Allergies Active Allergy Reactions Criticality Noted Date Comments Codeine Anaphylaxis High 08/04/2016 Penicillins Anaphylaxis High 08/04/2016 Medications lorazepam (ATIVAN) 1 MG tablet TAKE 1 TABLET BY MOUTH TWICE A DAY NEEDED FOR ANXIETY 0 6 Active meclizine (ANTIVERT) 25 mg tablet TAKE 1 TABLET BY MOUTH 3 TIMES A DAY NEEDED FOR DIZZINESS 1 7 Active loratadine (CLARITIN) 10 mg tablet TAKE 1 TABLET BY MOUTH EVERY DAY 5 7 Active omeprazole (PriLOSEC) 40 MG capsule TAKE 1 CAPSULE BY MOUTH EVERY DAY 1 8 Active meclizine (ANTIVERT) 12.5 mg tablet TAKE 1 TABLET BY MOUTH EVERY DAY NEEDED FOR DIZZINESS 4 Active aloe vera gel Apply to affected areas 4x daily as needed. 170 g 4 Active Active Problems Problem Noted Date Diagnosed Date Anxiety 10/23/2014 12/01/2023 Asthma (HHS/HCC) 10/23/2014 12/01/2023 Hypertension 10/23/2014 12/01/2023 Social History Tobacco Use Types Packs/Day Years Used Date Smoking Tobacco: Former Smokeless Tobacco: Never Comments No Sex and Gender Information Value Date Recorded Sex Assigned at Not on file Legal Sex Female 3:10 PM EST Gender Identity Not on file Sexual Orientation Not on file Last Filed Vital Signs Vital Sign Reading Time Taken Comments Blood Pressure 118/66 12/01/2023 2:47 PM EDT Pulse 69 12/01/2023 2:47 PM EDT Temperature 36.4 ??C (97.6 ??F) 12/01/2023 2:47 PM ED T Respiratory Rate 18 12/01/2023 2:47 PM EDT Oxygen Saturation 98% 12/01/2023 2:47 PM EDT Inhaled Oxygen Concentration - - Weight 61.7 kg (136 lb) 03/25/2020 10:13 AM EDT Height 160 cm (5' 3 ) 03/25/2020 10:13 AM EDT Body Mass Index 24.09 03/25/2020 10:13 AM EDT Plan of Treatment Health Maintenance Due Date Last Done Comments Colorectal Cancer: COLONOSCO PY Screening every 10 yrs (or Modifier) 1965 Pneumococcal Vaccination Scr eening: Pts 0-19 & 19-64 yrs of age ([facility]) (1 of 2 - PCV) 12/08/1969 Depression: Screening Annual ly using PHQ-2/9 in Adults 18 yrs or above (or HM Modifier)([facility]) 12/08/1981 Hepatitis C Virus Infection in Adolescents and Adults: Screening (or Modifier) ([facility]) 12/08/1981 KEVON Screening: Once using ST OP-BANG Questionnaire for Adults with Conditions or high BMI([facility]) 12/08/1981 SDOH Screening Reminder: Melisa charlee for all adults ([facility]) 12/08/1981 Tobacco Smoking Cessation: i n Adults excluding Women: Behavioral and Pharmacotherapy Interventions ([facility]) 12/08/1981 DTaP/Tdap/Td Vaccines ([facility]) (1 - Tdap) 12/08/1982 Cervical Cancer Screenin 1-65 yrs of age (or Modifier) 12/08/1984 Cervical Cancer Screening: P ap every 3 yrs pts age 21-65 12/08/1984 Cervical Cancer: Pap Screeni ng with Modifier timing ([facility]) 12/08/1984 Cervical Cancer: hrHPV alone or with cotesting Pap for Pts 30-65yrs screening every 5yrs ([facility]) 12/08/1984 Colorectal Cancer Screening 45 -75 Yrs (or HM Modifier ) 12/08/2008 Colorectal Cancer: FLEXIBLE SIGMOIDOSCOPY Screening every 5 yrs 12/08/2008 Colorectal Cancer: Fecal Imm unochemical Test (FIT) Annually [facility] 12/08/2008 Colorectal Cancer: High-sens itivity gFOBT Screening Annually [facility] 12/08/2008 Colorectal Cancer: Stool Col oguard Screening every 3 yrs 12/08/2008 Colorectal Cancer:CT Colonography Screening every 5 yr s 12/08/2008 Lipid Screening: Every 5 yrs for Women aged 45+ (or HM Modifier) ([facility]) 12/08/2009 Breast Cancer: Screening Melisa ually age 50-74 yrs (or HM Modifier)([facility]) 12/08/2013 Lung Cancer: Screening Annua lly in adults aged 50 to 80 years (or HM Modifiers)([facility]) 12/08/2013 Zoster/Shingles Vaccine Seri es Screening: Adults aged 18+ yrs (or HM Modifiers)([facility]) (1 of 2) 12/08/2013 RSV Vaccines (1 - Risk 60-74 years 1-dose series) 11/28 Flu Vaccination: Yearly for ages 18mos through 64 years (or Modifier)([facility]) 03/30/2024 COVID-19 Vaccine Screening: Initial Series and Booster Status ([facility]) (2023- season) 2024 [employer] Not on file Insurance [facility] [employer] MEDICARE Care Teams Pre K Teacher Relationship Specialty Start Date End Date Eleni Castellanos NP [address] [place] [address] [phone] PCP - Laster Hand 08/04/16
--- OUTSIDE RECORDS SUMMARY | 2024-10-16 09:00 | XMS_ITS | Clinical Summary ---
Author Organization [facility] Address [phone] [address] [place] [address] Care Team Providers Care Windows Desktop Engineer Name Role Phone Salud Grace MD Primary Care Provider [phone] Allergies Active Allergy Reactions Criticality Noted Date Comments Codeine Rash Low 02/19/2023 Penicillins Hives 02/19/2023 Medications Medication Sig Dispensed Refills Start Date End Date Status ondansetron (ZOFRAN) 4 MG tablet Take 1 tablet (4 mg total) by mouth every 8 (eight) hours as needed for nausea. 12 tablet 03/08/2023 Active aspirin 325 MG EC tablet Take 1 tablet (325 mg total) by mouth daily. 30 tablet 03/08/2023 Active oxyCODONE 5 MG immediate release tabletIndications:Pos toperative pain Take 1 tablet (5 mg total) by mouth every 4 (four) hours as needed. 30 tablet 03/09/2023 Active Social History Tobacco Use Types Packs/Day Years Used Date Smoking Tobacco: Never Smokeless Tobacco: Never Tobacco Cessation:Counseling Given: Not Answered Alcohol Use Standard Drinks/Week Comments Never 0 (1 standard drink = 0.6 oz pur e alcohol) Education Answer Date Recorded Are you interested in more education? Not on lobito e 02/09/2023 Are you concerned about learning? Not on file 02/09/2023 No 02/09/2023 No 02/09/2023 Digital Access Answer Date Recorded No 02/09/2023 No 02/09/2023 Reliable internet access at home? Not on file 02/09/2023 Device with a working camera? Not on file Intimate Partner Violence Answer Date R ecorded Are you denied basic needs s uch as food, clothing, or medical care? No 02/19/2023 In the past 12 months have y ou been in a relationship with a person who hurts, threatens, or tries to control you? No 02/19/2023 Are you denied basic needs s uch as food, clothing, or medical care? No 02/19/2023 In the past 12 months have y ou been in a relationship with a person who hurts, threatens, or tries to control you? No 02/19/2023 Sex and Gender Information Value Date Recorded Sex Assigned at Female 01/08/2023 1:02 PM EDT Gender Identity Female 01/08/2023 1:02 PM EDT Sexual Orientation Straight 01/08/2023 1: 02 PM EDT Last Filed Vital Signs Vital Sign Reading Time Taken Comments Blood Pressure 134/65 03/08/2023 1:30 PM EDT Pulse 57 03/08/2023 1:30 PM EDT Temperature 36.4 ??C (97.5 ??F) 03/08/2023 12:00 PM E DT Respiratory Rate 28 03/08/2023 12:45 PM EDT Oxygen Saturation 99% 03/08/2023 1:30 PM EDT Inhaled Oxygen Concentration - - Weight 60.3 kg (133 lb) 03/08/2023 8:36 AM EDT Height 160 cm (5' 3 ) 03/08/2023 8:36 AM EDT Body Mass Index 23.56 03/08/2023 8:36 AM EDT Plan of Treatment Health Maintenance Due Date Last Done Comments LIPID PANEL 1965 DEPRESSION SCREENING 1975 HEPATITIS B SCREENING 12/08/1981 HEPATITIS C SCREENING 12/08/1981 HIV ONE-TIME SCREENING (18-6 5 YEARS) 12/08/1981 PAP SMEAR 12/08/1984 MAMMOGRAM 2003 COLOGUARD 12/08/2008 COLONOSCOPY 12/08/2008 COLORECTAL CANCER SCREENING 12/08/2008 FIT TEST 12/08/2008 FOBT 12/08/2008 SIGMOIDOSCOPY 12/08/2008 VIRTUAL COLONOSCOPY 12/08/2008 HEPATITIS B VACCINES (2 of 3 - 19+ 3-dose series) 05/28/2009 04/30/2009 PNEUMOCOCCAL VACCINES (50+ y ears) (1 of 1 - PCV) 12/08/2013 ZOSTER VACCINES (1 of 2) 12/08/2013 Adult Td,Tdap Booster 02/27/2019 02/27/2009 INFLUENZA VACCINE (#1) 2024 COVID-19 VACCINE (1 - 2023-2 5 season) 2024 RSV VACCINE (1 - 1-dose 75+ series) 12/08/2038 SMOKING STATUS SCREENING (On ce After 26 Yrs) Completed 02/19/2023 HEPATITIS A VACCINES Aged Out No long er eligible based on patient's age to complete this topic HIB VACCINES Aged Out No longer eligi ble based on patient's age to complete this topic MENINGOCOCCAL VACCINES (ACWY) Aged Out No longer eligible based on patient's age to complete this topic Medical Devices Implanted Type Area Letter Of Credit Document Examiner Device Identifier Shelf Expiration Date Model / Serial / Lot Tendon Anchors 8 - [id number] Implanted:Qty: 1 on 03/08/2023 by Helder Nicole MD at [facility] [address] Right: Shoulder RUTH 10/09/2025 2504-1 / / [id number] [place] Bone 3.4mm Arthroscopic Delivery System Advanced - [id number] Implanted:Qty: 1 on 03/08/2023 by Helder Nicole MD at [facility] [address] Right: Shoulder RUTH 10/26/2025 [id number] / / [id number] Implant Mesh Lg Regeneten Bioinductive With Delivery System - [id number] Implanted:Qty: 1 on 03/08/2023 by Helder Nicole MD at [facility] [address] Right: Shoulder RUTH 08/08/2025 [id number] / / [id number] Care Teams Windows Desktop Engineer Relationship Specialty Start Date End Date Salud Grace MD [address] [facility] [address] [place] [address] PCP - General Internal Medicine 01/27/23 Additional Source Comments The information contained in this document represents components of the legal health record. It is not the complete legal health record.[facility]
--- OUTSIDE RECORDS SUMMARY | 2024-10-16 09:00 | XMS_ITS | Encounter Summary ---
Author Organization [facility] Address [phone] [place] [address] Care Team Providers Care Welt Trimming Machine Operator Name Role Phone Salud Grace MD Primary Care Provider [phone] Encounter Details Date Type Department Care Team (Late st Contact Info) Description 03/08/2023 Procedure Pass [facility] [address] [place] [id number] Social History Tobacco Use Types Packs/Day Years Used Date Smoking Tobacco: Never Smokeless Tobacco: Never Alcohol Use Standard Drinks/Week Comments Never 0 [...] Orientation Straight 01/08/2023 1: 02 PM EDT documented as of this encounter Plan of Treatment Not on file documented as of this encounter Visit Diagnoses Not on filedocumented in this encounter Care Teams Welt Trimming Machine Operator Relationship Specialty Start Date End Date Salud Grace MD [facility] [place] [address] PCP - General Internal Medicine 01/27/23 documented as of this encounter Additional Source Comments The information contained in this document represents components of the legal health record. It is not the complete legal health record.[facility]
--- OUTSIDE RECORDS SUMMARY | 2024-10-16 09:00 | XMS_ITS | Clinical Summary ---
Author Organization [facility] Address [address] [place] [address] Care Team Providers Care Overcoil Stepper Name Role Phone Elizabeth Ray MD Primary Care Provider [phone] Social History Tobacco Use Types Packs/Day Years Used Date Smoking Tobacco: Never Assessed Comments Unknown Sex and Gender Information Value Date Recorded Sex Assigned at Not on file Legal Sex Female 8:26 AM EST Gender Identity Not on file Sexual Orientation Not on file Plan of Treatment Health Maintenance Due Date Last Done Comments Breast Cancer Screening 1965 DTaP,Tdap,and Td Vaccines (1 - Tdap) 12/08/1982 Cervical Cancer Screening: P ap Smear 12/08/1984 Pneumococcal Vaccine: 50+ Ye ars (1 of 1 - PCV) 12/08/2013 Zoster Vaccines (1 of 2) 12/08/2013 COVID-19 Vaccine (2023-2 5 season) 2024 Influenza Vaccine (#1) 2024 RSV Immunization Patients 60 + Years Old (1 - 1-dose 75+ series) 12/08/2038 HIB Vaccines Aged Out No longer eligi ble based on patient's age to complete this topic HPV Vaccines Aged Out No longer eligi ble based on patient's age to complete this topic Hepatitis A Vaccines Aged Out No long er eligible based on patient's age to complete this topic Hepatitis B Vaccines Aged Out No long er eligible based on patient's age to complete this topic IPV Vaccines Aged Out No longer eligi ble based on patient's age to complete this topic MMR Vaccines Aged Out No longer eligi ble based on patient's age to complete this topic Meningococcal ACWY Vaccine Aged Out N o longer eligible based on patient's age to complete this topic Meningococcal B Vacine Aged Out No lo nger eligible based on patient's age to complete this topic Pneumococcal Vaccine: Pediat rics (0 to 5 Years) and At-Risk Patients (6 to 64 Years) Aged Out No longer eligible b ased on patient's age to complete this topic RSV Immunization Patients Un zelda 20 months Aged Out No longer eligible b ased on patient's age to complete this topic Varicella Vaccines Aged Out No longer eligible based on patient's age to complete this topic Care Teams Overcoil Stepper Relationship Specialty Start Date End Date Elizabeth Ray MD [address] [place] [address] PCP - General Internal Medicine 08/18/19
--- OUTSIDE RECORDS SUMMARY | 2024-10-16 09:00 | XMS_ITS | Encounter Summary ---
Author Organization [facility] Address [phone] [facility] [place] [address] Care Team Providers Care Top Distribution Executive Name Role Phone Salud Grace MD Primary Care Provider [phone] Encounter Details Date Type Department Care Team (Late st Contact Info) Description 02/10/2023 Procedure Pass MRI, [facility] [place] [address] [place] [address] Social History Tobacco Use Types Packs/Day Years Used Date Smoking Tobacco: Never Assessed Education Answer Date Recorded Are you interested in more education? Not on lobito e 02/09/2023 Are you concerned about learning? Not on file 02/09/2023 No 02/09/2023 No 02/09/2023 Digital Access Answer Date Recorded No 02/09/2023 No 02/09/2023 Reliable internet access at home? Not on file 02/09/2023 Device with a working camera? Not on file Sex and Gender Information Value Date Recorded Sex Assigned at Female 01/08/2023 1:02 PM EDT Gender Identity Female 01/08/2023 1:02 PM EDT Sexual Orientation Straight 01/08/2023 1: 02 PM EDT documented as of this encounter Plan of Treatment Not on file documented as of this encounter Visit Diagnoses Not on filedocumented in this encounter Care Teams Top Distribution Executive Relationship Specialty Start Date End Date Salud Grace MD [address] [place] [address] PCP - General Internal Medicine 01/27/23 documented as of this encounter Additional Source Comments The information contained in this document represents components of the legal health record. It is not the complete legal health record.[facility]
[2024-10-16 10:13] LABS: Alanine Aminotransferase 27 U/L (0-31); Albumin Level 4.6 g/dL (3.5-5.0); Alkaline Phosphatase 94 U/L (39-117); Aspartate Amino Transferase 25 U/L (5-31); Bilirubin Direct 0.2 mg/dL (0.0-0.5); Bilirubin Total 0.8 mg/dL (0.0-1.0); Cholesterol 205 mg/dL (<200); HDL Cholesterol 82 mg/dL (>40); LDL Cholesterol Calculated 113 mg/dL (<100); Lipase 24 U/L (8-78); Total Protein 8.1 g/dL (6.5-8.0); Triglycerides 51 mg/dL (<150)
[2024-10-16 10:28] LABS: TSH reflex Free T4 2.07 uIU/mL (0.32-4.0)
[2024-10-16 10:36] LABS: Folate 11.4 ng/mL (> or = 4.0); Vitamin B12 512 pg/mL (200-900)
[2024-10-17 22:24] LABS: Transglutaminase IgA <1.0 U/mL
== END 2024-10-16 08:58 | disposition home or self-care (01) ==
LOC: HO.LAB 08:57
PROVIDERS: PCP Physician Assistant; Visit Provider Nurse Practitioner Family
DX: R10.9 Unspecified abdominal pain (principal); R74.01 Elevation of levels of liver transaminase levels; K59.00 Constipation, unspecified; R19.7 Diarrhea, unspecified
CPT/HCPCS: 36415; 80061; 80076; 82607; 82746; 83690; 84443; 86364

== ENCOUNTER 2025-01-03 22:15 | Emergency (ER) | payer MEDICARE, MEDICAID, SELFPAY ==
--- NOTE | ~2025-01-03 | XR_ITS ---
CLINICAL HISTORY: Atraumatic acute low back pain, mostly left Exam: AP, lateral, spot lateral views of the lumbar spine. Comparison: None. Findings: Bony alignment of the lumbar vertebral bodies is anatomic. No acute fracture. Mild degenerative disc disease and degenerative facet disease from L2-3 inferiorly. No bony destructive changes. Surgical clips seen within the medial aspect of the right upper quadrant. Impression: No acute findings. This document has been electronically signed by: Gage Weber MD on 01/04/2025 02:42:11
[2025-01-03 22:17] VITALS: BP 149/88; PULSE 64; RESP 18; TEMP 36.8; O2SAT 99; BMI 21.3
--- OUTSIDE RECORDS SUMMARY | 2025-01-03 23:02 | XMS_ITS | Clinical Summary ---
Author Organization [facility] Address [address] [place] [address] Care Team Providers Care Craft Superintendent Name Role Phone Elizabeth Ray MD Primary Care Provider [phone] Social History Tobacco Use Types Packs/Day Years [...] Vaccine (2023-2 5 season) 2024 Influenza Vaccine (Season Ended) 2025 RSV Immunization Adult Patie nts (1 - 1-dose 75+ series) 12/08/2038 HIB [...] age to complete this topic Meningococcal B Vaccine Aged Out No l onger eligible based on patient's age to complete [...] age to complete this topic Care Teams Craft Superintendent Relationship Specialty Start Date End Date Elizabeth Ray MD [address] [place] [address] PCP - General Internal Medicine 08/18/19
--- OUTSIDE RECORDS SUMMARY | 2025-01-03 23:02 | XMS_ITS | Encounter Summary ---
Author Organization [facility] Address [address] [place] [address] Phone Care Team Providers Care Director Cost Name Role Phone Salud Grace MD Primary Care Provider Encounter Details Date Type Department Care Team (Late st Contact Info) Description 02/10/2023 Procedure Pass MRI, [facility] [address], [address] [place] [phone] Social History Tobacco Use Types Packs/Day Years [...] on filedocumented in this encounter Care Teams Director Cost Relationship Specialty Start Date End Date Salud Grace MD [address] [facility] [place] [address] PCP - General Internal Medicine 01/27/23 documented as of this encounter Additional Source Comments The information contained in this document represents components of the legal health record. It is not the complete legal health record.[facility]
--- OUTSIDE RECORDS SUMMARY | 2025-01-03 23:02 | XMS_ITS | Clinical Summary ---
Author Organization [facility] Address [address] [place] [address] Phone Care Team Providers Care Limnologist Name Role Phone Salud Grace MD Primary Care Provider Allergies Active Allergy Reactions Criticality Noted Date [...] this topic Medical Devices Implanted Type Area Log Haul Chain Feeder Device Identifier Shelf Expiration Date Model / Serial / Lot Tendon Anchors 8 - [id number] Implanted:Qty: 1 on 03/08/2023 by Helder Nicole MD at [facility] Right: Shoulder MIRANDA 10/09/2025 2504-1 / / [id number] Turner Bone 3.4mm Arthroscopic Delivery System Advanced - [id number] Implanted:Qty: 1 on 03/08/2023 by Helder Nicole MD at [facility] Right: Shoulder MIRANDA 10/26/2025 [id number] / / [id number] Implant Mesh Lg Regeneten Bioinductive With Delivery System - [id number] Implanted:Qty: 1 on 03/08/2023 by Helder Nicole MD at [facility] Right: Shoulder MIRANDA 08/08/2025 [id number] / / [id number] Care Teams Limnologist Relationship Specialty Start Date End Date Salud Grace MD [address] [facility] [address] [place] [address] PCP - General Internal Medicine 01/27/23 Additional Source Comments The information contained in this document represents components of the legal health record. It is not the complete legal health record.[facility]
--- OUTSIDE RECORDS SUMMARY | 2025-01-03 23:02 | XMS_ITS | Clinical Summary ---
Author Organization [facility] Address [address] [facility] [place] [address] Care Team Providers Care Pheresis Specialist Name Role Phone BeckGinnaEleni Plaza NP Primary [...] Screening every 10 yrs (or Modifier) 1965 Depression: Screening Annual ly using PHQ-2/9 in Adults 18 yrs or above (or HM Modifier)([facility]) 12/08/1981 Hepatitis C Virus Infection in Adolescents and Adults: Screening (or Modifier) ([facility]) 12/08/1981 KEVON Screening: Once using ST OP-BANG Questionnaire for Adults with Conditions or high BMI([facility]) 12/08/1981 SDOH Screening Reminder: Melisa deshpande for all adults ([facility]) 12/08/1981 Tobacco Smoking Cessation: i n Adults excluding Women: Behavioral and Pharmacotherapy Interventions ([facility]) 12/08/1981 DTaP/Tdap/Td Vaccines ([facility]) (1 - Tdap) 12/08/1982 Pneumococcal Vaccination Scr eening: Patients 50+ yrs of age ([facility]) (1 of 2 - PCV) 12/08/1982 Cervical Cancer Screenin 1-65 yrs of age (or Modifier) 12/08/1984 Cervical Cancer Screening: P ap every 3 yrs pts age 21-65 12/08/1984 Cervical Cancer: Pap Screeni ng with Modifier timing ([facility]) 12/08/1984 Cervical Cancer: hrHPV alone or with cotesting Pap for Pts 30-65yrs screening every 5yrs ([facility]) 12/08/1984 Colorectal Cancer Screening 45 -75 Yrs (or HM Modifier ) 12/08/2008 Colorectal Cancer: FLEXIBLE SIGMOIDOSCOPY Screening every 5 yrs 12/08/2008 Colorectal Cancer: Fecal Imm unochemical Test (FIT) Annually [facility] 12/08/2008 Colorectal Cancer: High-sens itivity gFOBT Screening Annually [facility] 12/08/2008 Colorectal Cancer: Stool Col oguard Screening every 3 yrs 12/08/2008 Colorectal Cancer:CT Colonography Screening every 5 yr s 12/08/2008 Lipid Screening: Every 5 yrs for Women aged 45+ (or HM Modifier) ([facility]) 12/08/2009 Breast Cancer: Screening Melisa ually age 50-74 yrs (or HM Modifier)([facility]) 12/08/2013 Lung Cancer: Screening Annua lly in adults aged 50 to 80 years (or HM Modifiers)([facility]) 12/08/2013 Zoster/Shingles Vaccine Seri es Screening: Adults aged 18+ yrs (or HM Modifiers)([facility]) (1 of 2) 12/08/2013 RSV Vaccines (1 - Risk 60-74 years 1-dose series) 11/28 COVID-19 Vaccine Screening: Initial Series and Booster Status ([facility]) (2023- season) 2024 Flu Vaccination: Yearly for ages 18mos through 64 years (or Modifier)([facility]) 03/30/2025 Medical Devices Not on file Insurance [facility] [employer] MEDICARE Care Teams Pheresis Specialist Relationship Specialty Start Date End Date Eleni Castellanos NP [address] [place] [phone] PCP - Circuit Breaker Mechanic 08/04/16
--- OUTSIDE RECORDS SUMMARY | 2025-01-03 23:02 | XMS_ITS | Patient Health Record ---
Author Organization [facility] Address [address] [place] [address] Care Team Providers Care Cream Tester Name Role Phone Raymundo Fernando Primary Care Provider REASON FOR REFERRAL No Information PLAN OF TREATMENT No Information Insurance Providers Payer Name Payer Address Payer Phone Subscriber Number Group Number Insured Name Patient Relationship to Insured Coverage Start Date Coverage End Date MEDICARE [employer] [address] [place] [address] [id number] Charis Torres Self - patient is the insured [facility] [address] [place] [address] [id number] Charis Torres Self - patient is the insured
--- NOTE | 2025-01-04 00:10 | PC.NURSE ---
pt able to ambulate around ed but reports lower back pain. pt given ice pack at this time. pt awaiting ed provider.
--- NOTE | 2025-01-04 01:02 | ED.GENADULT ---
HPI - General Adult General Chief complaint: Back Pain/Injury Stated complaint: back pain Time Seen by Provider: 01/04/25 01:02 History of Present Illness ED Provider: Trista CHARLES narrative: The patient is a 59-year-old female who says that about 3 days ago she started to experience pain in her left lower back. The pain came on gradually and it has gradually gotten worse. earlier today she went to the [facility] where she was prescribed cyclobenzaprine. She says no testing was done there. Despite taking cyclobenzaprine her pain was worse this evening and she came to the emergency room. She says the pain is severe when she changes positions. She has trouble walking because she feels that her left leg locks up when she puts pressure on the leg. She does not feel the pain radiates down the left leg however. She has had no fever, sweats, chills. No bowel or bladder control problems. She has never had problems with her back like this before. Related Data Home Medications ?Medication ?Instructions ?Recorded ?Confirmed acetaminophen 500 mg tablet 1,000 mg PO Q8H 08/18/23 08/28/24 Previous Rx's ?Medication ?Instructions ?Recorded loratadine 10 mg tablet 10 mg PO DAILY 90 days #90 tabs 08/18/23 meclizine 12.5 mg tablet 12.5 mg PO .QD PRN dizziness #20 09/21/23 tabs meloxicam 15 mg tablet 15 mg PO DAILY 30 days #30 tabs 02/01/24 lorazepam 0.5 mg tablet 0.5 mg PO BEDTIME PRN anxiety #5 08/28/24 tabs sertraline 50 mg tablet 50 mg PO DAILY 30 days #30 tabs 08/28/24 sennosides 8.6 mg tablet (Natural 17.2 mg (2 x 8.6 mg) PO BEDTIME 10/10/24 Senna Laxative) constipation #60 tabs acetaminophen 500 mg capsule 1,000 mg (2 x 500 mg) PO Q8H PRN 01/04/25 fever or pain #14 caps ibuprofen 400 mg tablet 400 mg PO Q6H PRN pain #14 tabs 01/04/25 ondansetron 4 mg disintegrating 4 mg PO Q6H PRN nausea and 01/04/25 tablet vomiting #10 tabs oxycodone 5 mg tablet 5 mg PO Q6H PRN pain #14 tabs 01/04/25 Allergies Allergy/AdvReac Type Severity Reaction Status Date / Time codeine Allergy Unknown palpitation Verified 01/03/25 22:24 Penicillins Allergy Unknown Rash Verified 01/03/25 22:24 Review of Systems Review of Systems: Yes all other systems are reviewed and are negative [facility] Past Medical History Medical History (Updated 01/04/25 @ 02:43 by Demetrius Weston MD) Abdominal pain Vertigo Costochondritis Generalized anxiety disorder History of COVID-19 Seasonal allergies Chronic heartburn Rotator cuff tear Degenerative disc disease, cervical Anxiety disorder Cholecystitis Upper abdominal pain Surgical History History of rotator cuff surgery Hx of cholecystectomy Family History Family History Father HTN (hypertension) Diabetes mellitus Mother HTN (hypertension) Son Crohn disease Daughter No problems noted. Social History Social History Household Members: Spouse Housing: House Alcohol intake: current Alcohol intake frequency: holidays/special occasions only Alcohol type: wine Patient Tobacco Use Status: Never used Tobacco Smoked in Last 30 Days: No e-Cigarette/Vaping Use: Never Used Use of substances other than those prescribed or required for medical reasons: No Advance Directives: No Advance Directives Information Provided: No Do you have a plan to hurt others: No Plan Patient : No service: No Current occupational status: unemployed and retired Cognitive needs: No Hearing needs: No Vision needs: No Physical Exam ED Vital Signs: Vital Signs - 24 hr 01/03/25 22:17 01/04/25 02:25 01/04/25 02:58 Temperature 98.3 F 98.2 F 98.2 F Pulse Rate 64 59 59 Respiratory Rate 18 16 16 Blood Pressure 149/88 H 143/77 H 143/77 H Pulse Oximetry 99 99 99 Oxygen Delivery Method Room Air Room Air Room Air BMI result Body Mass Index 21.3 Const Other: The patient seemed to be resting comfortably at the time that I first approached her but she seemed to have a great deal of pain with any position changes. HENMT Other: Face is symmetrical, mucous membranes moist Eyes General: appearance normal, both eyes and all related structures Conjunctivae: conjunctivae normal Pupils: Equal, round and reactive pupils present EOM: EOMs intact bilaterally Neck Neck: Yes normal visual inspection and Yes full ROM Resp Effort & Inspection: normal respiratory effort Auscultation: clear to auscultation bilaterally Cardio Rate: regular rate Rhythm: regular rhythm Heart sounds: S1 normal heart sound present and S2 normal heart sound present GI Other: abdomen is soft and nontender Back/Spine/Pelvis Other: the patient has a lot of tenderness in the region of the lower back and in the left lower back in particular. Skin Other: The skin is dry and unremarkable Neuro Other: the patient is awake and alert with a normal mental status. Cranial nerves are grossly intact. She moves her upper extremities normally and appropriately. She is able to move her lower extremities but she seems to have a lot of pain when she does so, especially with the left leg. She has intact sensation in the legs. She has 2+ reflexes of the knees, 1+ reflexes at the ankles. Toes go down bilaterally. Cranial nerves: Yes Equal, round and reactive pupils present Extrem Other: No peripheral edema. No calf swelling or tenderness. No asymmetry. She has pain with movement of the left leg but she is able to move all of the joints. Medications Administered Discontinued Medications Generic Name Dose Route Start Last Admin Trade Name Joceline PRN Reason Stop Dose Admin Acetaminophen 975 mg 01/04/25 01:15 01/04/25 01:22 Acetaminophen 325 Mg Tablet PO 01/04/25 01:16 975 mg ONCE ONE Administration Ketorolac Tromethamine 30 mg 01/04/25 01:15 01/04/25 01:22 Ketorolac Tromethamine 30 Mg/Ml Vial IM 01/04/25 01:16 30 mg ONCE ONE Administration Oxycodone HCl 5 mg 01/04/25 01:15 01/04/25 01:22 Oxycodone Hcl Immed Release 5 Mg Tablet PO 01/04/25 01:16 5 mg ONCE ONE Administration Medical Decision Making Medical Decision Making [facility] Narrative: The patient is a 59-year-old woman who presents with a proximally 3 days of worsening left lower back pain it is worse with movement and weight-bearing on the left leg. She has been seen at the [facility] earlier today and prescribed cyclobenzaprine. She says no testing was done there. Her pain worsened and she came to the emergency room here. There was no report of any infectious symptoms. No fever, sweats, chills. No bowel or bladder control complaints. This seems to be a case of a significant low back pain without neurological red flags. She was given an IM injection of ketorolac and an oral dose of oxycodone with improvement in her pain. She seemed to feel better. I will sent prescriptions for acetaminophen, oxycodone, and (at her request) ondansetron as needed for nausea. She will be discharged with instructions to follow up with her primary care doctor promptly. She should return if worse. Discharge Plan Discharge Clinical Impression: Acute left-sided low back pain Patient Disposition: Home, Self-Care Instructions: Acute Low Back Pain (ED) Additional Instructions: I have sent all your prescriptions to the 24 hour pharmacy, the [facility] pharmacy on [address] in [place]. You may use acetaminophen prescribed up to 3 times per day as needed for pain. You may use the ibuprofen every 6 hours as needed for pain as well. Additionally you may use the cyclobenzaprine which was prescribed at the other hospital. I have also sent a prescription for oxycodone, a strong pain medication, which you may use as well if necessary. No driving on oxycodone or cyclobenzaprine. If you feel nauseated you may use the prescribed ondansetron. Please avoid lifting and bending or any other activities that exacerbate your pain. Please contact your regular doctor's office in the morning for a prompt follow up appointment for further management of your back pain. Return to the emergency room if significantly worse. Prescriptions: New ondansetron 4 mg tablet,disintegrating 4 mg PO Q6H PRN (Reason: nausea and vomiting) Qty: 10 0RF acetaminophen 500 mg capsule 1,000 mg PO Q8H PRN (Reason: fever or pain) Qty: 14 0RF oxycodone 5 mg tablet 5 mg PO Q6H PRN (Reason: pain) Qty: 14 0RF Rx Instructions: Partial Fill upon patient request. ibuprofen 400 mg tablet 400 mg PO Q6H PRN (Reason: pain) Qty: 14 0RF No Action meclizine 12.5 mg tablet 12.5 mg PO .QD PRN (Reason: dizziness) Qty: 20 0RF meloxicam 15 mg tablet 15 mg PO DAILY 30 Days Qty: 30 3RF acetaminophen 500 mg tablet 1,000 mg PO Q8H loratadine 10 mg tablet 10 mg PO DAILY 90 Days Qty: 90 1RF lorazepam 0.5 mg tablet 0.5 mg PO BEDTIME PRN (Reason: anxiety) Qty: 5 0RF sertraline 50 mg tablet 50 mg PO DAILY 30 Days Qty: 30 1RF sennosides [Natural Senna Laxative] 8.6 mg tablet 17.2 mg PO BEDTIME Qty: 60 3RF Referrals: Brady Bonilla PA-C [Primary Care Provider] - Interventions: ED Discharge Assessment Last Done: 01/04/25 02:58 Discharge Date/Time: 01/04/25 02:59 Print Language: Greenlandic
[2025-01-04] MEDS: Acetaminophen 325 MG TABLET 975 MG PO (01:22)
[2025-01-04] MEDS: oxyCODONE HCl Immed Release 5 MG TABLET PO (01:22)
[2025-01-04] MEDS: Ketorolac Tromethamine 30 MG/ML VIAL IM (01:22)
--- NOTE | 2025-01-04 01:28 | PC.NURSE ---
pt medicated per oct, tolerated whole well with water. awaiting xray
[2025-01-04 02:25] VITALS: BP 143/77; PULSE 59; RESP 16; TEMP 36.8; O2SAT 99
[2025-01-04 02:58] VITALS: BP 143/77; PULSE 59; RESP 16; TEMP 36.8; O2SAT 99
== END 2025-01-04 02:59 | disposition home or self-care (01) ==
PROVIDERS: Emergency Provider Emergency Medicine; PCP Physician Assistant
DX: M54.50 Low back pain, unspecified (principal); Z79.899 Other long term (current) drug therapy
CPT/HCPCS: 72100; 96372; 99284; J1885

== ENCOUNTER → 2025-01-04 01:34 | Outpatient (BNV) | payer MEDICARE, MEDICAID, SELFPAY | PROVIDERS: Emergency Provider Emergency Medicine; PCP Physician Assistant; Visit Provider Radiology Diagnostic Radiology | DX: M54.50 Low back pain, unspecified (principal) | CPT/HCPCS: 72100 ==